=== PATIENT | female | born 1945 | race Caucasian/White ===

== ENCOUNTER 2017-09-12 13:38 | Outpatient (CLI) | payer OTHER, MEDICARE ==
[2017-09-12 14:49] LABS: BILIRUBIN,URINE NEGATIVE (NEGATIVE); BLOOD, URINE NEGATIVE (NEGATIVE); CLARITY/URINE CLEAR (CLEAR); COLOR,URINE YELLOW (YELLOW); GLUCOSE,URINE NEGATIVE (NEGATIVE); KETONES,URINE NEGATIVE (NEGATIVE); LEUKOCYTE ESTERASE ,URINE 1+ (NEGATIVE); NITRITE, URINE NEGATIVE (NEGATIVE); PROTEIN URINE NEGATIVE (NEGATIVE); UROBILINOGEN,URINE 0.2 (0.2-1.0)
[2017-09-12 15:00] LABS: HEMATOCRIT 43.6 % (36-48); HEMOGLOBIN 14.3 g/dL (12.0-16.0); MEAN CORPUSCULAR HEMOGLOBIN 30 pg (27-31); MEAN CORPUSCULAR HGB CONC 33 % (32-36); MEAN CORPUSCULAR VOLUME 92 fL (79.0-98.0); PLATELET COUNT (AUTO) 506 K/uL (130-430); RED BLOOD CELL COUNT(AUTO) 4.73 MIL/uL (4.2-6.2); RED CELL DISTRIBUTION WIDTH 13.4 % (9.0-15.0); WHITE BLOOD COUNT (AUTO) 10.1 K/uL (4.8-10.8)
[2017-09-12 15:19] LABS: CALCIUM 9.7 mg/dL (8.4-11.0); CREATININE 0.68 mg/dL (0.55-1.30)
[2017-09-12 15:23] LABS: BACTERIA,URINE MODERATE /HPF (None Seen); RBC,URINE 0-3 /HPF (0-3)
[2017-09-12 15:24] LABS: MUCUS,URINE 1+ /LPF (None Seen)
[2017-09-12 15:45] LABS: BASOPHILS % (MANUAL) 0 % (0-2); EOSINOPHILS % (MANUAL) 1 % (0-7); LYMPHOCYTES % (MANUAL) 34 % (20-46); MONOCYTES % (MANUAL) 13 % (0-11)
== END 2017-09-12 19:26 | disposition home or self-care (01) ==
LOC: SLB 13:38
PROVIDERS: ATTEND Otolaryngology
DX: Z01.818 Encounter for other preprocedural examination (principal); M47.894 Other spondylosis, thoracic region; R05 Cough; R91.8 Other nonspecific abnormal finding of lung field; Z79.01 Long term (current) use of anticoagulants
CPT/HCPCS: 36415; 71020-TC; 80048; 81000-TC; 85007; 85027; 85610-TC; 85730-TC

== ENCOUNTER 2019-04-23 06:18 | Emergency (ER) | payer OTHER, MEDICARE ==
[~2019-04-23] VITALS: Ht 154.9 cm; Wt 67.1 kg
[2019-04-23 06:18] VITALS: BP_SYST 139
[2019-04-23] MEDS ORDERED: VALS80TA2 PO (06:36)
[2019-04-23] MEDS ORDERED: SIMV40TA2 PO (06:36)
[2019-04-23] MEDS ORDERED: TEMA30CA5 PO (06:36)
[2019-04-23] MEDS ORDERED: CLOP300T2 PO (06:36)
[2019-04-23] MEDS ORDERED: ZOLP5TAB2 PO (06:36)
[2019-04-23 07:14] VITALS: BP_SYST 128
== END 2019-04-23 07:14 | disposition home or self-care (01) ==
LOC: SED 06:18
DX: R04.0 Epistaxis (principal); I10 Essential (primary) hypertension
CPT/HCPCS: 99283